=== PATIENT | male | born 1950 | race African-American/Black ===

== ENCOUNTER 2019-10-14 19:42 | Inpatient (IN) ==
[2019-10-14] MEDS ORDERED: SODIUM CHLORIDE 0.9% 500 ML IV STA (20:51)
[2019-10-14] MEDS ORDERED: ONDANSETRON 4 MG/2 ML VIAL IV STA (21:15)
[2019-10-14] MEDS ORDERED: MEPERIDINE 25 MG/1 ML VIAL IV STA (21:15)
[2019-10-14] MEDS ORDERED: KETOROLAC 30 MG/1 ML VIAL IV STA (21:15)
[2019-10-14] MEDS ORDERED: methylPREDNISolone SOD SUC 125 MG/2 ML VIAL IV STA (21:16)
[2019-10-14 21:47] LABS: Basophils % 0.1 % (0.0-0.8); Hematocrit 45.9 VOL% (42.0-52.0); Immature Granulocytes % 0.5 %; Immature Granulocytes Absolute 0.04 #; Lymphocytes # 2.3 10*3/uL (1.4-4.0); Lymphocytes % 28.5 % (21.2-54.2); Mean Corpuscular HGB Conc 32.7 GM/DL (32-36); Mean Corpuscular Volume 87.3 FL (87-102); Mean Platelet Volume 9.9 FL (9.6-12.0); Monocytes % 8.1 % (1.7-12.7); Neutrophils % 62.8 % (38.7-73.9); Platelet Count 307 T/CUMM (130-400); Red Blood Count 5.26 MC/CUMM (3.8-5.5); Red Cell Distribution Width 13.6 % (9.3-17.3); White Blood Count 8.1 T/CUMM (4-12)
[2019-10-14 21:55] LABS: PT Patient Result 10.5 SECS (9.8-11.9)
[2019-10-14 22:13] LABS: Alanine Aminotransferase 13 U/L (16-61); Albumin 4.1 G/DL (3.4-5.0); Alkaline Phosphatase 79 U/L (45-117); Aspartate Amino Transferase 16 U/L (0-37); Blood Urea Nitrogen 103 MG/DL (7-18); Calcium 9.3 MG/DL (8.5-10.1); Estimated Glom Filtration Rate 24 ML/MIN; Glucose 124 MG/DL (74-106); Osmolality,Calculated 290.9 MOS/KG (273-304); Total Protein 8.2 G/DL (6.4-8.3); Troponin I < 0.015 NG/ML (0.00-0.045)
[2019-10-14 22:39] LABS: Apearance,Urine CLOUDY (Clear); Bilirubin,Urine Negative (Negative); Blood, Urine Negative (Negative); Glucose,Urine (UA) Negative (Negative); Hyaline Casts,Urine 145 /LPF (0-3); Ketones,Urine Negative (Negative); Mucus,Urine Occasional /LPF (Occasional); Nitrite,Urine Negative (Negative); Protein,Urine Negative; RBC,Urine 1 /HPF (0-4); Squamous Epithelial Cell,Urine Occasional /HPF (0-10); Urine Color Amber (Yellow); Urine Specific Gravity 1.019 (1.001-1.035); Urine Urobilinogen < 2.0 EU/DL (0.2-1.0); WBC,Urine 26 /HPF (0-6)
[2019-10-14 22:40] LABS: Barbiturates Screen,Urine Negative (Negative); Benzodiazepines Screen,Urine Negative (Negative); Cannabinoid Screen,Urine Positive (Negative); Opiate Screen,Urine Negative (Negative); Phencyclidine Screen,Urine Negative (Negative)
[2019-10-14] MEDS ORDERED: cefTRIAXone 1,000 MG in SODIUM CHLORIDE 0.9% 100 ML IV STA (22:48)
[2019-10-15] MEDS ORDERED: ACETAMINOPHEN 325 MG TABLET PO PRN (01:42)
[2019-10-15] MEDS ORDERED: ONDANSETRON 4 MG/2 ML VIAL IV PRN (01:42)
[2019-10-15] MEDS: SODIUM CHLORIDE 0.9% 1,000 ML IV SCH ×4 (02:22→21:37)
[2019-10-15] MEDS ORDERED: SKIN HEALING OINT (AQUAPHOR) 50 GM TUBE TOP PRN (02:44)
[2019-10-15 04:34] LABS: Hematocrit 42.3 VOL% (42.0-52.0); Hemoglobin 13.6 GM/DL (14.0-18.0); Immature Granulocytes % 0.8 %; Immature Granulocytes Absolute 0.07 #; Lymphocytes # 1.2 10*3/uL (1.4-4.0); Lymphocytes % 13.7 % (21.2-54.2); Mean Corpuscular HGB Conc 32.2 GM/DL (32-36); Mean Corpuscular Volume 88.7 FL (87-102); Mean Platelet Volume 10.3 FL (9.6-12.0); Monocytes % 1.6 % (1.7-12.7); Neutrophils % 83.9 % (38.7-73.9); Platelet Count 301 T/CUMM (130-400); Red Blood Count 4.77 MC/CUMM (3.8-5.5); Red Cell Distribution Width 13.4 % (9.3-17.3); White Blood Count 8.6 T/CUMM (4-12)
[2019-10-15 05:30] LABS: Calcium 8.8 MG/DL (8.5-10.1); Osmolality,Calculated 298.5 MOS/KG (273-304); Thyroid Stimulating Hormone 0.764 uIU/ml (0.358-3.74)
[2019-10-15] MEDS ORDERED: DEXTROSE 50% 25 GM/50 ML SYRINGE IV ONE (05:50)
[2019-10-15] MEDS: ENOXAPARIN 30 MG/0.3 ML SYRINGE SUBCUT SCH (06:30)
[2019-10-15] MEDS: predniSONE 20 MG TABLET PO SCH (14:02)
[2019-10-15] MEDS: traMADol 50 MG TABLET PO PRN (21:38)
[2019-10-15] MEDS: cefTRIAXone 1,000 MG in SYRINGE 1 EACH IV SCH (22:52)
[2019-10-16] MEDS: SODIUM CHLORIDE 0.9% 1,000 ML IV SCH ×4 (04:42→20:25)
[2019-10-16 05:21] LABS: Basophils % 0.1 % (0.0-0.8); Eosinophils % 0.1 % (0.00-10.9); Hematocrit 42.3 VOL% (42.0-52.0); Hemoglobin 13.3 GM/DL (14.0-18.0); Immature Granulocytes % 0.5 %; Immature Granulocytes Absolute 0.05 #; Lymphocytes % 29.9 % (21.2-54.2); Mean Corpuscular HGB Conc 31.4 GM/DL (32-36); Mean Platelet Volume 10.1 FL (9.6-12.0); Monocytes % 10.1 % (1.7-12.7); Neutrophils % 59.3 % (38.7-73.9); Platelet Count 280 T/CUMM (130-400); Red Blood Count 4.65 MC/CUMM (3.8-5.5); Red Cell Distribution Width 13.5 % (9.3-17.3); White Blood Count 9.9 T/CUMM (4-12)
[2019-10-16 05:36] LABS: Calcium 8.3 MG/DL (8.5-10.1); Osmolality,Calculated 290.8 MOS/KG (273-304)
[2019-10-16] MEDS: ENOXAPARIN 30 MG/0.3 ML SYRINGE SUBCUT SCH (07:36)
[2019-10-16] MEDS: predniSONE 20 MG TABLET PO SCH (09:57)
[2019-10-16] MEDS: traMADol 50 MG TABLET PO PRN (20:25)
[2019-10-16] MEDS: cefTRIAXone 1,000 MG in SYRINGE 1 EACH IV SCH (23:05)
[2019-10-17 05:31] LABS: Calcium 8.3 MG/DL (8.5-10.1)
[2019-10-17] MEDS: ENOXAPARIN 30 MG/0.3 ML SYRINGE SUBCUT SCH (06:25)
[2019-10-17] MEDS: predniSONE 20 MG TABLET PO SCH (09:28)
[2019-10-17] MEDS: SODIUM CHLORIDE 0.9% 1,000 ML IV SCH (10:42)
[2019-10-17] MEDS: amLODIPine 5 MG TABLET PO SCH (12:12)
[2019-10-17] MEDS: traMADol 50 MG TABLET PO PRN (20:46)
[2019-10-18] MEDS: cefTRIAXone 1,000 MG in SYRINGE 1 EACH IV SCH (00:57)
[2019-10-18] MEDS: ENOXAPARIN 30 MG/0.3 ML SYRINGE SUBCUT SCH (06:34)
[2019-10-18] MEDS: amLODIPine 5 MG TABLET PO SCH (08:58)
[2019-10-18] MEDS: predniSONE 20 MG TABLET PO SCH (08:58)
[2019-10-18 11:04] VITALS: BP 148/73
== END 2019-10-18 16:22 | disposition home or self-care (01) | DRG 683 ==
LOC: N.ED 19:42 → N.EDINP 10-15 01:39 → SUATTDRO 10-15 01:39 → N.3E 10-15 12:06
PROVIDERS: ADMIT Internal Medicine; ATTEND Hospitalist